=== PATIENT | female | born 1955 | race Caucasian/White ===

== ENCOUNTER → 2017-01-17 | Outpatient (CLI) | payer OTHER ==
[~2017-01-17] MED LIST: ANTIVERT PO; ASPIRIN81 M1 PO; CALAN PO; CALCIUM + VITAM1 TAB PO; CELEXA PO; CLIMARA 0.1 MG0.1 MG; COLACE PO; DESYREL100 MG PO; FISH OIL 1,0001 CA2 PO; FLEXERIL10 MG PO; GARLIC500 M1 PO; LIPITOR20 MG; OMNICEF300 M1 PO; PRILOSEC40 MG PO; RESTASIS32 EA; SYNTHROID PO; VOLTAREN75 MG PO; XANAX0.5 MG PO; ZANTAC150 M1
--- NOTE | ~2017-01-17 | MY11 ---
[facility] RADIOLOGY TEXT RESULTS PATIENT: CINTIA HERMOSILLO LOCATION: [facility] : 51 UNIT #: [id number] AGE: [address]: Rena Garcia MD SEX: F ORDER DR: [id number] [facility] [address] [place], [place] [address] [id number] O MR#: [id number] #: [id number] NAME: CINTIA HERMOSILLO : 1955 SEX: F STUDY DATE/TIME: 01/17/2017 13:42 UNIT: [facility] ROOM: STUDY DESCRIPTION: MY Mammogram Screening Dig Angelito Attending Physician: Rena Garcia M.D. Ordering Physician: Rena Garcia M.D. Primary Care Physician: Betty Chandler A.P.R.N. MEDICAL IMAGING REPORT This report is preliminary unless electronic signature is present EXAM Digital screening mammogram with CAD 01/17/2017 INDICATIONS Routine screening. PROCEDURE Bilateral CC and MLO views obtained on a digital mammography unit, FDA-approved CAD device utilized. COMPARISON STUDIES 10/03/2014 FINDINGS Scattered fibroglandular density. No dominant mass or suspicious calcification. IMPRESSION Negative screening mammogram, screen interval 1 year suggested. BIRADS B 1 - negative Patients over the age of 40 are entered into a reminder system with target due date for the next mammogram. A result letter will also be sent to the patient. BIRADS: 1 - Negative Dictated by... Tomas Acosta M.D. THIS IS AN ELECTRONICALLY VERIFIED REPORT Tomas Acosta M.D. at 01/20/2017 7:42 AM ELIZABETHD/jose m [facility] A Service [facility] RADIOLOGY TEXT RESULTS PATIENT: CINTIA HERMOSILLO LOCATION: [facility] : 51 UNIT #: [id number] AGE: [address]: Rena Garcia MD SEX: F ORDER DR: TD: 01/17/2017 18:39 JOB #: [id number] MEDICAL IMAGING REPORT Page 1 of 1 COPY
== END | disposition home or self-care (01) ==
LOC: CWCC 13:32
DX: Z12.31 Encounter for screening mammogram for malignant neoplasm of breast (principal)
CPT/HCPCS: G0202